=== PATIENT | female | born 1975 | race African-American/Black ===

== ENCOUNTER 2017-01-06 10:07 | Emergency (ER) | payer BC ==
[~2017-01-06] VITALS: Ht 167.6 cm; Wt 87.7 kg
[~2017-01-06 10:07] MED LIST: MOTRIN600 MG PO; NOHOMEMEDS; SKELAXIN800 MG PO
[2017-01-06] MEDS ORDERED: INDOCIN50 MG PO (12:27)
[2017-01-06] MEDS ORDERED: ULTRAM50 MG PO (12:27)
[2017-01-06 12:43] VITALS: BP 139/105
== END 2017-01-06 12:44 | disposition home or self-care (01) ==
LOC: EME 10:07
DX: S83.91XA Sprain of unspecified site of right knee, initial encounter (principal); X58.XXXA Exposure to other specified factors, initial encounter; Y93.84 Activity, sleeping; Z88.0 Allergy status to penicillin; Z88.2 Allergy status to sulfonamides
CPT/HCPCS: 73564; 99281; 99283